=== PATIENT | male | born 1990 | race Caucasian/White ===

== ENCOUNTER 2023-08-19 16:02 | Emergency (ER) | payer BC ==
[2023-08-19] MEDS: Acetaminophen 325 MG Tab PO ONE (16:47)
[2023-08-19] MEDS: traMADol 50 MG Tab PO ONE (16:47)
[2023-08-19] MEDS: Take Home: traMADol 50 MG, 4 Tab Pack PO ONE (17:29)
== END 2023-08-19 17:37 | disposition home or self-care (01) ==
LOC: LL.ED 16:02
DX: S82.831A Other fracture of upper and lower end of right fibula, initial encounter for closed fracture (principal); R03.0 Elevated blood-pressure reading, without diagnosis of hypertension; E66.9 Obesity, unspecified; Z68.42 Body mass index [BMI] 45.0-49.9, adult; W00.0XXA Fall on same level due to ice and snow, initial encounter
CPT/HCPCS: 29515; 73610-RT; 99283; A9270-GY

== ENCOUNTER 2025-04-09 11:54 | Emergency (ER) | payer BC ==
[2025-04-09 12:10] LABS: APPEARANCE,URINE CLEAR; GLUCOSE,URINE NEGATIVE (NEGATIVE); OCCULT BLOOD,URINE TRACE-LYSED (NEGATIVE)
[2025-04-09 12:16] LABS: SQUAMOUS EPITHELIAL CELLS,UR FEW /HPF (NOT SEEN)
[2025-04-09 13:08] LABS: BASOPHILS ABSOLUTE AUTO 0.02 K/uL (0.00-0.20); BASOPHILS PERCENT AUTO 0.3 % (0.0-2.0); EOSINOPHILS ABSOLUTE AUTO 0.13 K/uL (0.00-0.50); EOSINOPHILS PERCENT AUTO 1.6 % (0.0-5.0); IMMATURE GRAN ABSOLUTE AUTO 0.01 10^3/uL (0.00-0.04); IMMATURE GRAN PERCENT AUTO 0.1 % (0.0-0.4); LYMPHOCYTES ABSOLUTE AUTO 2.17 K/uL (0.50-3.50); LYMPHOCYTES PERCENT AUTO 27.1 % (10.0-50.0); MONOCYTES ABSOLUTE AUTO 0.52 K/uL (0.00-1.00); MONOCYTES PERCENT AUTO 6.5 % (2.0-14.0); NEUTROPHILS ABSOLUTE AUTO 5.15 K/uL (1.40-7.00); NEUTROPHILS PERCENT AUTO 64.4 % (45.0-80.0); PLATELET COUNT,PLT 296 K/uL (150-350); RED BLOOD CELL COUNT 5.27 M/uL (4.33-5.41); RED CELL DISTRIBUTION WIDTH 13.8 % (11.2-14.1); WHITE BLOOD CELL COUNT,WBC 8.0 K/uL (4.0-10.2)
[2025-04-09 13:34] LABS: ALANINE AMINOTRANSFERASE,ALT 18 U/L (12-78); ASPARTATE AMNIOTRANSFERASE,AST 16 U/L (15-37); BILIRUBIN TOTAL 0.5 mg/dL (0.2-1.0); BLOOD UREA NITROGEN,BUN 16 mg/dL (7-18); CARBON DIOXIDE,CO2 28.6 mmol/L (21.0-32.0); CHLORIDE,CL 105 mmol/L (98-107); CREATININE 0.97 mg/dL (0.51-1.17); ESTIMATED GFR 106 mL/min (>=60); GLUCOSE RANDOM 90 mg/dL (70-99); POTASSIUM,K 4.2 mmol/L (3.5-5.1); PROTEIN TOTAL,TP 7.7 g/dL (6.4-8.2); SODIUM,NA 141 mmol/L (136-145)
[2025-04-09 16:49] VITALS: BP 149/96; PULSE 61
== END 2025-04-09 14:11 | disposition home or self-care (01) ==
LOC: LL.ED 11:54
DX: R31.9 Hematuria, unspecified (principal); E66.9 Obesity, unspecified
CPT/HCPCS: 36415; 74176; 80053; 81001; 85025; 99284